=== PATIENT | female | born 1990 | race Caucasian/White ===

== ENCOUNTER 2021-01-19 04:50 | Inpatient (IN) | payer OTHER, SELFPAY ==
[2021-01-19] VITALS (25 sets, daily range): BP systolic 87–125; BP diastolic 42–76; PULSE 65–109; RESP 16–18; TEMP 36.4–37.1; O2SAT 97–98; BMI 26.9
[2021-01-19 04:47] LABS: ROM Internal Control Test YES-OK TO RESULT pt. (Internal QC)
[2021-01-19 04:48] LABS: ROM Patient Test POSITIVE (Negative)
[2021-01-19] MEDS: Lactated Ringers 1,000 ML 50 ML IV (05:00)
[2021-01-19 05:11] LABS: Absolute Lymphocyte Count 2.05 X10^3/uL (0.83-4.51); Basophil# 0.03 X10^3/uL; Basophil% 0.3 % (0-1); Eosinophil# 0.07 X10^3/uL; Eosinophils% 0.7 % (0-5); Hematocrit 34.1 % (37-47); Lymphocyte # 2.05 X10^3/ul (0.83-4.51); Lymphocyte % 20.8 % (19-41); Mean Corp Hgb Conc 32.3 g/dL (32-36); Mean Corpuscular Hgb 31.4 pg (27.0-32.0); Mean Corpuscular Volume 97.4 fL (81-99); Mean Platelet Vol. 11.2 fl (6.2-12.0); Monocyte# 0.69 X10^3/uL; NRBC Flagged by Analyzer 0 % (0-5); Neutrophil # 6.97 X10^3/uL (2.7-7.7); Neutrophil % 70.8 % (47-70); Platelet Count 222 K/mm3 (150-450); RBC Distribution Width CV 12.4 % (11.6-14.6); RBC Distribution Width SD 43.6 fl (35.1-43.9); White Blood Count 9.9 K/mm3 (4.4-11.0)
[2021-01-19] MEDS: Oxytocin 30 units/NS 500 ml 30 UNITS/500 ML IV.SOLN IV (05:43)
[2021-01-19] MEDS: Amnioinfusion- 0.9% NS 1,000 ML IV.SOLN. 200 ML INTRA-UTER (09:30)
[2021-01-19] MEDS: Oxytocin 30 units/NS 500 ml 30 UNITS/500 ML IV.SOLN 334 UNITS IV (10:50)
--- NOTE | 2021-01-19 11:07 | PCM.OPRPT ---
Problem List (1) Spontaneous rupture of amniotic membranes Status: Acute (2) 39 weeks gestation of Status: Acute (3) (spontaneous vaginal delivery) Status: Acute (4) First degree laceration of perineum during delivery, Status: Acute Report of Operation Date of Procedure: 01/19/21 Vaginal Delivery Maternal Presentation: Spontaneous Rupture of Membranes Patient is a at 39.6 weeks gestation that presented to triage for spontaneous rupture of membranes for clear fluid. Patient having irregular contractions. Positive movement. Method of Induction: Pitocin Amniotic Membrane Rupture Type: Spontaneous at home Rupture of Membrane time: 0200 Amniotic Fluid Description: Clear Final JAJA: 01/20/21 Gestational age: 39 Weeks and 6 Days Date of Procedure: 01/19/21 Pre-Operative Diagnosis: Term gestation, SROM Post-Operative Diagnosis: Same, live male infant Surgery/ Procedure Performed: Spontaneous Vaginal Delivery Type of Anesthesia: None Description of Procedure: Patient desired unmedicated labor and delivery. Present with patient in room for labor support. Laboring on hands and knees and began feeling increased pressure. CE revealed complete dilation. Patient transitioned to bed and began bearing down with contractions. Head of delivered spontaneously with minimal maternal support. Loose cord around neck noted and easily reduced. Anterior then posterior shoulder delivered quickly followed by remainder of . Vigorous male placed on maternal abdomen and attended to by nursing staff. 3 vessel cord clamped and cut by FOB after 3 minute delay. Pitocin IV started for active management of the third stage of labor. Placenta delivered spontaneously and intact via [place]. First degree vaginal laceration repaired in usual fashion with Vicryl 3-0. Hemostasis occurred. Fundus firm 2 below U. Vaginal sweep completed by me. and patient bonding well at this time. Dr. Beltran notified of delivery. Presentation: Vertex Placental Delivery Description: Spontaneous Placenta Disposition: [facility] Cord Vessel Description: 3 Vessels Nuchal Cord Compression: Without compression Cord Entanglement: Around neck x 1, loose Estimated Blood Loss: 200 (1 minute): 8 (5 minute): 9 Episiotomy Description: None Laceration: Vaginal Extension/lac, 1st degree Medications given after delivery: IV Pitocin Complications: None
--- NOTE | 2021-01-19 14:56 | PCM.HP.OB ---
- Problem List (1) Spontaneous rupture of amniotic membranes Status: Acute (2) 39 weeks gestation of Status: Acute History Date of Admission: 01/19/21 Final JAJA: 01/20/21 Gestational age: 39 Weeks and 6 Days History of this : This is a 30 year-old, G [1], P [0], at 39.6 weeks gestational age that presents to triage unit for spontaneous rupture of membranes for clear fluid around 0200. Patient reports occasional contractions and positive movement. has been uncomplicated. Patient has a history of depression with no medications for over 8 years. GBS negative. Allergies No Known Allergies Allergy (Verified 01/19/21 04:03) Home Medications: Home Medications Famotidine [Pepcid] 20 mg PO PRN PRN 01/19/21 Vit,Calc76/Iron/Folic [Pnv 29-1 Tablet] 1 each PO DAILY 01/19/21 Smoking Status: Never smoker Number of Fetus(es): 1 History Past Pregnancies: Past Pregnancies Delivery Date Name GA/ Weeks Outcome Route Wt Sex Labor Length Anesthesia Delivery Location Provider FOB Labs: O+ Rubella- immune HB- neg HC- neg RPR- NR HIV- NR GC/CH- neg GBS- neg COVID- 19 - Negative 01/19/21 Expected Delivery Method: Spontaneous Vaginal Review of Systems Constitutional: Denies: Chills, Fever, Weight Change HEENT: Denies: Head Aches, Sinus Congestion, Sinus Drainage Cardiovascular: Denies: Chest Pain, Palpitations Respiratory: Denies: Cough, Shortness of breath at rest, Sputum production Gastrointestinal: Denies: Abdominal Pain, Nausea, Vomiting Genitourinary: Denies: Dysuria Musculoskeletal: Denies: Joint Pain, Joint Tenderness Neurological: Denies: Numbness, Tingling, Focal weakness Hematologic/ Lymphatic: Denies: Easy Bruising, Easy Bleeding Physical Exam Vitals: Vital Signs Temp Pulse BP Pulse Ox 98.1 F 65 112/57 L 98 01/19/21 11:00 01/19/21 13:29 01/19/21 13:29 01/19/21 06:45 General: Alert, Oriented x3, No apparent distress HEENT: Atraumatic, Normocephalic. Negative for: Thyromegaly, Lymphadenopathy Cardiovascular: Regular rate, Regular Rhythm Lungs: Clear to auscultation Abdomen: Soft, Non Tender, Gravid Neurological: Cranial nerves II-XII grossly intact JUNIOR SYSTEMS ADMINISTRATOR: Normal external genitalia Estimated gestational size: Appropriate for gestational size Presentation: Cephalic Assessment/Plan All Active Problems Spontaneous rupture of amniotic membranes (Acute) 39 weeks gestation of (Acute) (spontaneous vaginal delivery) (Acute) First degree laceration of perineum during delivery, (Acute) This is a 30 year-old, G 1 P 0at 39.6 weeks gestational age with spontaneous rupture of membranes for clear fluid. Admit to labor and delivery Routine labs Start IV fluids per protocol GBS negative ROM plus- positive Start pitocin IV and titrate per policy Pain medications when indicated Anticipate Dr. Beltran aware of admission and plan of care
[2021-01-20 03:28] VITALS: BP 102/62; PULSE 83; RESP 16; TEMP 36.6
[2021-01-20 07:43] VITALS: BP 105/64; PULSE 75; RESP 16; TEMP 36.6
--- NOTE | 2021-01-20 11:53 | PCM.PN.OB ---
Patient Problems: Active and Suspected Problems Spontaneous rupture of amniotic membranes (Acute) 39 weeks gestation of (Acute) (spontaneous vaginal delivery) (Acute) First degree laceration of perineum during delivery, (Acute) Subjective: Doing well per patient and nursing staff. Ambulating and taking PO without difficulty. Voiding and passing flatus. Pain controlled. Denies any headache, visual changes, chest pain, SOB, increased vaginal bleeding or clots. . Planning D/C home tomorrow but possibly this evening if ok with peds. - Physical Exam Vitals/I&O's: Vital Signs Temp Pulse Resp BP Pulse Ox 97.9 F 75 16 105/64 97 01/20/21 07:43 01/20/21 07:43 01/20/21 07:43 01/20/21 07:43 01/19/21 20:03 Oxygen Delivery Method Room Air Weight: 187 lb 9.814 oz Body Mass Index (BMI) 26.9 Intake and Output for Last 24 Hours 01/18/21 01/19/21 01/20/21 23:59 23:59 23:59 Intake Total 1202.97 / 1202.97 Output Total 100 / 100 Balance 1102.97 / 1102.97 General: Alert, Oriented x3, Cooperative HEENT: Atraumatic, Normocephalic Neck: Trachea Midline Lungs: Clear to auscultation, Normal air movement, No rhonchi, No wheeze Cardiovascular: Regular rate, Regular Rhythm, No murmurs Abdomen: Bowel Sounds Present - Fundus firm 2 below Extremities: No edema - Ananda's negative bilaterally Psych/Mental Status: Normal Affect, Appropriate Microbiology Past 72 Hours 01/19/21 06:05 Mucosa - Nose SARS-CoV-2 Antigen (Rapid) - Final Current Medications Acetaminophen (Acetaminophen 500 Mg Tablet) 1,000 mg PO Q8H PRN PRN PRN Reason: Pain Score 1-10 Bisacodyl (Bisacodyl 10 Mg Suppository) 10 mg RC UD PRN PRN Reason: If no BM Dibucaine (Dibucaine 30 Gm Tube) 1 applic TOPICAL TID PRN PRN; Protocol PRN Reason: Discomfort Hydrocortisone (Hydrocortisone 2.5% Crm) 1 applic TOPICAL TID PRN PRN; Protocol PRN Reason: Discomfort Ibuprofen (Ibuprofen 600 Mg Tablet) 600 mg PO Q6H PRN PRN PRN Reason: Pain Score 1-10 Methylergonovine Maleate (Methylergonovine 0.2 Mg/Ml Ampul) 0.2 mg IM X1 PRN PRN Reason: Excess bleeding/uterine atony Ondansetron HCl (Ondansetron 4 Mg/2 Ml Vial) 4 mg IV Q4H PRN PRN PRN Reason: Nausea Senna/Docusate Sodium (Senna/Docusate Sodium 1 Tablet) 1 - 2 tablet PO DAILY PRN PRN PRN Reason: Constipation Simethicone (Simethicone 80 Mg Tablet) 80 mg PO PCHS PRN PRN Reason: Indigestion/Stomach pain Sodium Chloride (0.9% Saline Lock 10 Ml Syringe) 5 - 15 ml IV UD PRN PRN Reason: SALINE FLUSH Medical Necessity - Tobacco Use Smoking Status: Never smoker Assessment/Plan All Active Problems Spontaneous rupture of amniotic membranes (Acute) 39 weeks gestation of (Acute) (spontaneous vaginal delivery) (Acute) First degree laceration of perineum during delivery, (Acute) A:PPD #1 P: 1.Routine PP and instructions given 2.Would like discharge home tonight if activities leader discharge baby. 3.Follow up in 2 weeks for virtual visit and 6 weeks for PP visit.
--- NOTE | 2021-01-20 12:29 | DCINST_ITS ---
Discharge Diet: No Restrictions Discharge Activity: Return to Normal Activity, May not drive while taking narcotic pain medications., May Shower, May Take a Tub Bath May resume sexual activity in: 4-6 weeks Weight Bearing Status: Full weight bearing Additional Activity Instructions:: Nothing in the vagina for 4-6 weeks. You may return to work/school in 6 weeks. Call your doctor if your incision/area has: Continuous Slow Oozing, Sudden Increased Bleeding, Increased Pain/ Swelling, Increased Redness, Foul Smelling Discharge Call your doctor if you observe: Fever of 101 or Higher, Inability to urinate, Inability to have a bowel movement, Using more than one pad per hour, Shortness of breath, Chest pain, Increased palpitations (irregular heartbeat), Calf discomfort, Uncontrolled pain Additional Instructions: If you experience any of the following, contact your healthcare provider. * Bleeding that soaks a pad every hour for 2 hours * Fever 100.4 or higher * Unrelieved incision or abdominal pain * Swelling, redness, discharge or bleeding from your incision or episiotomy site * Your incision begins to separate * Problems urinating (including inability to urinate or burning while urinating). * Visual changes * Severe headache * Flu-like symptoms * Pain or redness in one of both of your breasts * Pain, warmth, tenderness or swelling in your legs, especially the calf area * Frequent nausea and vomiting * Symptoms of depression or anxiety If you experience any of the following, call 911 or go to the nearest Emergency Room. * Chest pain * Problems breathing * Seizure activity * Partial or complete paralysis of a body part, slurred speech, weakness or drooping of the face, or a sudden inability to walk or hold your balance Allergies/Adverse Reactions: Allergies No Known Allergies Allergy (Verified 01/19/21 04:03) Medications to take at Discharge Famotidine [Pepcid] 20 mg PO PRN PRN 01/19/21 Vit,Calc76/Iron/Folic [Pnv 29-1 Tablet] 1 each PO DAILY 01/19/21 Please Follow Up With: Abigail Gonzalez CNM When: Call to make an appointment with your doctor in 2 weeks for virtual visit and 6 weeks. If you had elevated Blood Pressure or 4th degree laceration you will need to be seen in 2 weeks. Primary Care Physician: Justina,Francis, DO [Primary Care Provider] - Test Results: Test results from this visit will be discussed in further detail at your follow- up appointment, if applicable.
[2021-01-20 14:48] VITALS: BP 115/63; PULSE 83; RESP 16; TEMP 36.8
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
== END 2021-01-20 18:50 | disposition home or self-care (01) | DRG 807 ==
LOC: WPOUT 04:54 → WP 04:54
PROVIDERS: Obstetrics & Gynecology; Admitting Provider Advanced Practice Midwife; PCP Preventive Medicine Occupational Medicine; Visit Provider Advanced Practice Midwife
DX: O69.81X0 Labor and delivery complicated by cord around neck, without compression, not applicable or unspecified (principal); Z37.0 Single live birth; O70.0 First degree perineal laceration during delivery; Z3A.39 39 weeks gestation of pregnancy
CPT/HCPCS: 59025; 59050; 84112; 85025; 86850; 86900; 86901; 87426; 99218; J7030; J7120; G0378